=== PATIENT | male | born 1990 | race Caucasian/White ===

== ENCOUNTER 2022-03-11 12:07 | Emergency (ER) | payer OTHER ==
[2022-03-11 12:12] VITALS: BP 152/90; PULSE 96; RESP 20; TEMP 98.6; BMI 30.2
== END 2022-03-11 14:45 | disposition home or self-care (01) ==
LOC: JER 12:07
PROC: 0HQGXZZ Repair Left Hand Skin, External Approach (ICD-10-PCS; principal; 2022-03-11)
PROC: 2W3HX1Z Immobilization of Left Thumb using Splint (ICD-10-PCS; 2022-03-11)
DX: S61.412A Laceration without foreign body of left hand, initial encounter (principal); W26.8XXA Contact with other sharp object(s), not elsewhere classified, initial encounter
CPT/HCPCS: 99282-25